=== PATIENT | male | born 1950 | race Native Hawaiian/Other Pacific Islander ===

== ENCOUNTER 2016-12-17 07:58 | Outpatient (CLI) | payer OTHER ==
[~2016-12-17] VITALS: Ht 167.6 cm; Wt 49.9 kg
== END 2016-12-17 20:13 | disposition home or self-care (01) ==
LOC: NM 07:58
DX: R07.89 Other chest pain (principal)
CPT/HCPCS: A9500; J2785

== ENCOUNTER 2018-03-26 17:54 | Outpatient (CLI) | payer OTHER | END 2018-03-26 18:25 | disposition short-term general hospital (02) | LOC: AMB 17:54 | DX: I21.09 ST elevation (STEMI) myocardial infarction involving other coronary artery of anterior wall (principal) | CPT/HCPCS: A0425; A0427 ==

== ENCOUNTER 2018-05-21 16:04 | Outpatient (CLI) | payer OTHER ==
[2018-05-21 16:17] LABS: PLATELET COUNT 192 K/uL (142-355)
== END 2018-05-21 21:26 | disposition home or self-care (01) ==
LOC: LABW 16:04
PROVIDERS: Specialist
DX: Z01.810 Encounter for preprocedural cardiovascular examination (principal); I73.89 Other specified peripheral vascular diseases
CPT/HCPCS: 36415; 80053; 85027

== ENCOUNTER 2018-06-08 10:00 | Outpatient (CLI) | payer OTHER ==
[2018-06-08 10:21] LABS: PLATELET COUNT 345 K/uL (142-355)
== END 2018-06-08 22:00 | disposition home or self-care (01) ==
LOC: LABW 10:00
PROVIDERS: Nurse Practitioner Adult Health
DX: I25.10 Atherosclerotic heart disease of native coronary artery without angina pectoris (principal); E78.2 Mixed hyperlipidemia; Z79.899 Other long term (current) drug therapy; Z51.81 Encounter for therapeutic drug level monitoring
CPT/HCPCS: 36415; 80061; 80076; 85027

== ENCOUNTER 2018-08-17 20:41 | Emergency (ER) | payer OTHER ==
[~2018-08-17] VITALS: Ht 167.6 cm; Wt 56.2 kg
[2018-08-17 21:25] LABS: POTASSIUM 4.9 mmol/L (3.6-5.2)
[2018-08-17 22:02] LABS: PLATELET COUNT 178 K/uL (142-355)
[2018-08-18 03:09] VITALS: BP 119/57; TEMP 102.9
== END 2018-08-18 03:13 | disposition short-term general hospital (02) ==
LOC: ED 20:41
DX: K40.90 Unilateral inguinal hernia, without obstruction or gangrene, not specified as recurrent (principal); R00.0 Tachycardia, unspecified
CPT/HCPCS: 36415; 80053; 83605; 85027; 93005; 96361; 96365; 99284; J0132; J2175; J2405; J7120; Q9963

== ENCOUNTER 2018-08-18 03:08 | Outpatient (CLI) | payer OTHER | END 2018-08-18 03:38 | LOC: AMB 03:08 | DX: K40.90 Unilateral inguinal hernia, without obstruction or gangrene, not specified as recurrent (principal); R00.0 Tachycardia, unspecified | CPT/HCPCS: A0425; A0427 ==

== ENCOUNTER 2018-11-18 09:43 | Outpatient (CLI) | payer OTHER | END 2018-11-18 22:09 | disposition home or self-care (01) | LOC: LABW 09:43 | PROVIDERS: Internal Medicine Cardiovascular Disease | DX: E78.5 Hyperlipidemia, unspecified (principal); I25.119 Atherosclerotic heart disease of native coronary artery with unspecified angina pectoris; Z09 Encounter for follow-up examination after completed treatment for conditions other than malignant neoplasm | CPT/HCPCS: 36415; 80061; 80076 ==

== ENCOUNTER 2019-08-30 10:05 | Outpatient (CLI) | payer OTHER ==
[2019-08-30 10:22] LABS: PLATELET COUNT 285 K/uL (142-355)
[2019-08-30 10:34] LABS: POTASSIUM 4.8 mmol/L (3.6-5.2)
== END 2019-08-30 19:57 | disposition home or self-care (01) ==
LOC: LABW 10:05
PROVIDERS: Surgery Vascular Surgery
DX: Z01.810 Encounter for preprocedural cardiovascular examination (principal); Z01.811 Encounter for preprocedural respiratory examination; Z01.812 Encounter for preprocedural laboratory examination; I70.221 Atherosclerosis of native arteries of extremities with rest pain, right leg
CPT/HCPCS: 36415; 80048; 85027; 93005

== ENCOUNTER 2019-09-21 11:22 | Outpatient (CLI) | payer OTHER | END 2019-09-21 19:34 | disposition home or self-care (01) | LOC: LABW 11:22 | PROVIDERS: Internal Medicine Cardiovascular Disease | DX: E78.49 Other hyperlipidemia (principal); I25.119 Atherosclerotic heart disease of native coronary artery with unspecified angina pectoris; Z09 Encounter for follow-up examination after completed treatment for conditions other than malignant neoplasm | CPT/HCPCS: 36415; 80061; 80076 ==

== ENCOUNTER 2019-10-18 10:31 | Outpatient (CLI) | payer OTHER | END 2019-10-18 19:09 | disposition home or self-care (01) | LOC: LABW 10:31 → MRI 10:31 | PROVIDERS: Orthopaedic Surgery Orthopaedic Surgery of the Spine | DX: M54.16 Radiculopathy, lumbar region (principal); M54.5 Low back pain; E78.49 Other hyperlipidemia | CPT/HCPCS: 36415; 80061; 80076 ==

== ENCOUNTER 2020-04-24 11:22 | Outpatient (CLI) | payer OTHER | END 2020-04-24 22:05 | disposition home or self-care (01) | LOC: RAD 11:22 | DX: R05 Cough (principal); R10.9 Unspecified abdominal pain; K59.09 Other constipation ==

== ENCOUNTER 2020-04-25 08:23 | Outpatient (CLI) | payer OTHER | END 2020-04-25 20:04 | disposition home or self-care (01) | LOC: LABW 08:23 | PROVIDERS: Nurse Practitioner Family | DX: R05 Cough (principal); R10.9 Unspecified abdominal pain; E78.49 Other hyperlipidemia | CPT/HCPCS: 36415; 80061; 80076; 82565; 84520 ==

== ENCOUNTER 2020-04-25 08:34 | Outpatient (CLI) | payer OTHER | END 2020-04-25 20:04 | disposition home or self-care (01) | LOC: LAB 08:34 | DX: R05 Cough (principal) | CPT/HCPCS: 87635; G2023; Q9963; U0002 ==

== ENCOUNTER 2020-07-10 12:09 | Emergency (ER) | payer OTHER ==
[~2020-07-10] VITALS: Ht 167.6 cm; Wt 56.2 kg
[2020-07-10] MEDS ORDERED: DEPO-TESTOS200 MG/M1 IM (12:17)
[2020-07-10] MEDS ORDERED: BUDE1AER5 INH (12:17)
[2020-07-10] MEDS ORDERED: METO25TA2 PO (12:18)
[2020-07-10] MEDS ORDERED: CLOP75TA2 PO (12:18)
[2020-07-10] MEDS ORDERED: ASPIRIN 81 LOW81 MG PO (12:18)
[2020-07-10] MEDS ORDERED: ACID REDUCER150 MG PO (12:19)
[2020-07-10] MEDS ORDERED: PRAVACHOL20 MG PO (12:19)
[2020-07-10] MEDS ORDERED: PRINIVIL5 MG PO (12:20)
[2020-07-10] MEDS ORDERED: HYDROXYZINE HYD50 MG PO (12:23)
[2020-07-10] MEDS ORDERED: CENTRUM SILVER PO (12:24)
[2020-07-10] MEDS ORDERED: [UNRECOGNIZED DRUG - CODE] PO (12:25)
[2020-07-10] MEDS ORDERED: CODEINE/APAP1 TA1 PO (12:27)
[2020-07-10 13:00] LABS: PLATELET COUNT 155 K/uL (142-355)
[2020-07-10 13:13] LABS: POTASSIUM 5.3 mmol/L (3.6-5.2); SODIUM 136 mmol/L (136-145)
[2020-07-10 14:30] VITALS: TEMP 98.2
[2020-07-10 16:00] VITALS: BP 132/60
== END 2020-07-10 16:00 | disposition home or self-care (01) ==
LOC: ED 12:09
PROVIDERS: Family Medicine
DX: E86.0 Dehydration (principal)
CPT/HCPCS: 80053; 82550; 82553; 83605; 84484; 85027; 93005; 96360; 99284

== ENCOUNTER 2020-08-11 08:30 | Outpatient (CLI) | payer OTHER ==
[~2020-08-11 08:30] MED LIST: ACID REDUCER150 MG PO; ASPIRIN 81 LOW81 MG PO; BUDE1AER5 INH; CENTRUM SILVER PO; CLOP75TA2 PO; CODEINE/APAP1 TA1 PO; DEPO-TESTOS200 MG/M1 IM; HYDROXYZINE HYD50 MG PO; METO25TA2 PO; PRAVACHOL20 MG PO; PRINIVIL5 MG PO; [UNRECOGNIZED DRUG - CODE] PO
== END 2020-08-12 03:33 | disposition home or self-care (01) ==
LOC: NM 08:30
DX: R11.0 Nausea (principal)
CPT/HCPCS: A9541

== ENCOUNTER 2020-10-09 10:00 | Outpatient (CLI) | payer OTHER | END 2020-10-09 22:08 | disposition home or self-care (01) | LOC: LABW 10:00 | PROVIDERS: ATTEND Internal Medicine Cardiovascular Disease | DX: E78.49 Other hyperlipidemia (principal); I25.119 Atherosclerotic heart disease of native coronary artery with unspecified angina pectoris; Z09 Encounter for follow-up examination after completed treatment for conditions other than malignant neoplasm | CPT/HCPCS: 36415; 80061; 80076 ==

== ENCOUNTER 2021-10-11 07:45 | Outpatient (CLI) | payer OTHER | END 2021-10-11 18:55 | disposition home or self-care (01) | LOC: LABW 07:45 | PROVIDERS: ATTEND Internal Medicine Cardiovascular Disease | DX: E78.49 Other hyperlipidemia (principal) | CPT/HCPCS: 36415; 80061; 80076 ==

== ENCOUNTER 2021-12-22 15:17 | Observation (INO) | payer OTHER ==
[~2021-12-22] VITALS: Ht 165.1 cm; Wt 50.4 kg
[~2021-12-22 15:17] MED LIST changes: -PRAVACHOL20 MG PO; +PRAVASTATIN PO
[2021-12-22 15:25] VITALS: BP 124/75; TEMP 97.6
[2021-12-22 16:01] LABS: PLATELET COUNT 225 K/uL (142-355)
[2021-12-22 16:13] LABS: POTASSIUM 5.6 mmol/L (3.6-5.2)
[2021-12-22 16:19] LABS: PARTIAL THROMBOPLASTIN TIME 27.5 SECONDS (24.5-33.6)
[2021-12-22 18:21] VITALS: BP 150/91; TEMP 98.3
[2021-12-22 19:00] VITALS: BP 134/61
[2021-12-22 19:12] VITALS: BP 163/85; TEMP 97.9; Ht 165.1 cm; Wt 50.4 kg
[2021-12-22 20:23] VITALS: BP 163/85; TEMP 97.9
[2021-12-22 23:53] VITALS: BP 129/68; TEMP 97.1
[2021-12-23 04:20] VITALS: BP 145/73; TEMP 97.5
[2021-12-23 05:39] LABS: PLATELET COUNT 190 K/uL (142-355)
[2021-12-23 05:46] LABS: POTASSIUM 4.7 mmol/L (3.6-5.2)
[2021-12-23 08:00] VITALS: BP 131/71; TEMP 97.7
[2021-12-23 12:00] VITALS: BP 152/70; TEMP 97.8
[2021-12-23] MEDS ORDERED: LISINOPRIL PO (14:09)
[2021-12-23] MEDS ORDERED: TRELEGY ELLIPTA1 AER INH (14:17)
[2021-12-23] MEDS ORDERED: PAROXETINE HYDR20 MG PO (14:18)
[2021-12-23] MEDS ORDERED: TAMSULOSIN HYD0.4 MG PO (14:19)
[2021-12-23] MEDS ORDERED: LEVOCETIRIZINE D5 MG PO (14:21)
[2021-12-23] MEDS ORDERED: MEGESTROL AC40 MG PO (14:24)
[2021-12-23] MEDS ORDERED: cilostazol PO (14:27)
[2021-12-23] MEDS ORDERED: METOCLOPRAM10 MG PO (14:29)
[2021-12-23] MEDS ORDERED: DOK100 MG PO (14:30)
[2021-12-23 16:00] VITALS: BP 130/73; TEMP 97.3
[2021-12-23 20:00] VITALS: BP 140/65; TEMP 97.4
[2021-12-23 23:53] VITALS: BP 147/63; TEMP 98.7
[2021-12-24 04:00] VITALS: BP 140/62; TEMP 98.3
[2021-12-24 08:00] VITALS: BP 146/54; TEMP 98.3
[2021-12-24 12:00] VITALS: BP 147/64; TEMP 98.3
[2021-12-24 16:00] VITALS: BP 153/72; TEMP 98.1
[2021-12-24 20:00] VITALS: BP 143/73; TEMP 98.2
[2021-12-25] VITALS: BP 150/68; TEMP 98.3
[2021-12-25 04:00] VITALS: BP 142/69; TEMP 98.6
[2021-12-25 08:00] VITALS: BP 151/73; TEMP 99.1
[2021-12-25 12:00] VITALS: BP 122/73; TEMP 97.6
== END 2021-12-25 13:30 | disposition home health service (06) ==
LOC: ED 15:17 → MED/SURG 18:17
PROVIDERS: Family Medicine; ADMIT Internal Medicine Endocrinology, Diabetes & Metabolism; ATTEND Internal Medicine Endocrinology, Diabetes & Metabolism
DX: G45.8 Other transient cerebral ischemic attacks and related syndromes (principal); J44.1 Chronic obstructive pulmonary disease with (acute) exacerbation; I25.110 Atherosclerotic heart disease of native coronary artery with unstable angina pectoris; I10 Essential (primary) hypertension; E78.49 Other hyperlipidemia; Z72.0 Tobacco use; R06.02 Shortness of breath
CPT/HCPCS: 80048; 80053; 82550; 84484; 85027; 85610; 85730; 87635; 93005; 94640; 94664; 94760; 96360; 96361; 96365; 96372; 99220; 99283; G0378; J1650; U0003

== ENCOUNTER 2022-02-19 12:58 | Observation (INO) | payer OTHER ==
[2022-02-19] VITALS (10 sets, daily range): BP systolic 108–199; BP diastolic 45–78; TEMP 97.4–98.7; Ht 165.1 cm; Wt 52.3 kg
[~2022-02-19] VITALS: Ht 165.1 cm; Wt 52.3 kg
[~2022-02-19 12:58] MED LIST changes: +DOK100 MG PO; +LEVOCETIRIZINE D5 MG PO; +LISINOPRIL PO; +MEGESTROL AC40 MG PO; +METOCLOPRAM10 MG PO; +PAROXETINE HYDR20 MG PO; +TAMSULOSIN HYD0.4 MG PO; +TRELEGY ELLIPTA1 AER INH; +cilostazol PO
[2022-02-19 13:41] LABS: PLATELET COUNT 232 K/uL (142-355)
[2022-02-19 13:43] LABS: POTASSIUM 4.8 mmol/L (3.6-5.2)
[2022-02-20] VITALS (7 sets, daily range): BP systolic 117–184; BP diastolic 52–99; TEMP 97.6–99
[2022-02-20 04:12] LABS: PLATELET COUNT 186 K/uL (142-355)
[2022-02-20 04:25] LABS: POTASSIUM 4.6 mmol/L (3.6-5.2)
[2022-02-20] MEDS ORDERED: ACID CONTROL20 MG PO (09:10)
[2022-02-20] MEDS ORDERED: FEXOFENADINE H180 M1 PO (09:11)
[2022-02-21 04:07] VITALS: BP 117/49; TEMP 98.4
[2022-02-21 08:00] VITALS: BP 123/65; TEMP 98.1
[2022-02-21 08:30] LABS: PLATELET COUNT 193 K/uL (142-355)
[2022-02-21 08:36] LABS: POTASSIUM 5.1 mmol/L (3.6-5.2)
[2022-02-21 12:00] VITALS: BP 130/69; TEMP 98.4
[2022-02-21] MEDS ORDERED: PANTOPRAZOLE 40MG TA PO (12:43)
== END 2022-02-21 15:38 | disposition home or self-care (01) ==
LOC: ED 12:58 → MED/SURG 16:45
PROVIDERS: Emergency Medicine; Internal Medicine Endocrinology, Diabetes & Metabolism; ADMIT Internal Medicine; ATTEND Internal Medicine
DX: J44.1 Chronic obstructive pulmonary disease with (acute) exacerbation (principal); I25.10 Atherosclerotic heart disease of native coronary artery without angina pectoris; D63.8 Anemia in other chronic diseases classified elsewhere; I10 Essential (primary) hypertension; R00.0 Tachycardia, unspecified; E78.49 Other hyperlipidemia; Z72.0 Tobacco use; Z86.73 Personal history of transient ischemic attack (TIA), and cerebral infarction without residual deficits
CPT/HCPCS: 36415; 36600; 80048; 80053; 81000; 82805; 83880; 84484; 85027; 85610; 87635; 93005; 94640; 94664; 94760; 96361; 96365; 96366; 96367; 96372; 96374; 96375; 99220; 99284; G0378; J1650; J1956; J2920; J2930; J3490; Q9963; U0003

== ENCOUNTER 2022-02-25 17:21 | Emergency (ER) | payer OTHER ==
[~2022-02-25] VITALS: Ht 165.1 cm; Wt 52.2 kg
[~2022-02-25 17:21] MED LIST changes: +ACID CONTROL20 MG PO; +FEXOFENADINE H180 M1 PO; +PANTOPRAZOLE 40MG TA PO
[2022-02-25 21:05] VITALS: BP 131/62; TEMP 98.2
== END 2022-02-25 21:05 | disposition home or self-care (01) ==
LOC: ED 17:21
PROC: 2W38X1Z Immobilization of Right Upper Extremity using Splint (ICD-10-PCS; principal; 2022-02-25)
DX: S42.211A Unspecified displaced fracture of surgical neck of right humerus, initial encounter for closed fracture (principal); R51.9 Headache, unspecified; W18.39XA Other fall on same level, initial encounter; Y92.098 Other place in other non-institutional residence as the place of occurrence of the external cause
CPT/HCPCS: 99283

== ENCOUNTER 2022-03-04 13:48 | Outpatient (CLI) | payer OTHER | END 2022-03-04 21:23 | disposition home or self-care (01) | LOC: RAD 13:48 | PROVIDERS: ATTEND Orthopaedic Surgery | DX: M25.511 Pain in right shoulder (principal) ==

== ENCOUNTER 2022-03-07 15:04 | Outpatient (CLI) | payer OTHER | END 2022-03-07 22:11 | disposition home or self-care (01) | LOC: LAB 15:04 | PROVIDERS: ATTEND Internal Medicine Gastroenterology | DX: K64.0 First degree hemorrhoids (principal) | CPT/HCPCS: 82272 ==

== ENCOUNTER 2022-03-18 13:57 | Outpatient (CLI) | payer OTHER | END 2022-03-18 19:03 | disposition home or self-care (01) | LOC: RAD 13:57 | PROVIDERS: ATTEND Physician Assistant | DX: M25.511 Pain in right shoulder (principal) ==

== ENCOUNTER 2022-04-16 14:45 | Outpatient (CLI) | payer OTHER | END 2022-04-16 18:54 | disposition home or self-care (01) | LOC: RAD 14:45 | PROVIDERS: ATTEND Orthopaedic Surgery | DX: M25.511 Pain in right shoulder (principal) ==

== ENCOUNTER 2022-05-17 11:38 | Outpatient (CLI) | payer OTHER | END 2022-05-17 20:00 | disposition home or self-care (01) | LOC: LABW 11:38 | PROVIDERS: ATTEND Internal Medicine Cardiovascular Disease | DX: E78.49 Other hyperlipidemia (principal) | CPT/HCPCS: 36415; 80061; 80076 ==

== ENCOUNTER 2022-06-13 22:06 | Inpatient (IN) | payer OTHER ==
[~2022-06-13] VITALS: Ht 165.1 cm; Wt 48.8 kg
[2022-06-13 22:18] VITALS: BP 113/59; TEMP 97.6
[2022-06-13 22:23] LABS: PLATELET COUNT 201 K/uL (142-355)
[2022-06-13 22:42] LABS: POTASSIUM 5.1 mmol/L (3.6-5.2)
[2022-06-14 02:05] VITALS: BP 145/76; TEMP 99; Ht 165.1 cm; Wt 48.8 kg
[2022-06-14 04:00] VITALS: BP 146/74; TEMP 97.6
[2022-06-14] MEDS ORDERED: CLARITIN10 M1 PO (05:48)
[2022-06-14] MEDS ORDERED: BAC 50-325-40 M1 TAB PO (05:49)
[2022-06-14 06:46] LABS: PLATELET COUNT 180 K/uL (142-355)
[2022-06-14 08:30] VITALS: BP 129/70; TEMP 98.8
[2022-06-14 12:00] VITALS: BP 138/76; TEMP 98.3
[2022-06-14 16:00] VITALS: BP 138/76; TEMP 98.3
[2022-06-14 20:00] VITALS: BP 116/59; TEMP 99.8
[2022-06-15] VITALS: BP 118/62; TEMP 100.7
[2022-06-15 04:00] VITALS: BP 137/75; TEMP 97.4
[2022-06-15 08:00] VITALS: BP 138/74; TEMP 98.1
[2022-06-15 12:00] VITALS: BP 129/69; TEMP 97.8
[2022-06-15 16:09] VITALS: BP 132/73; TEMP 97.6
[2022-06-16] VITALS: BP 108/60; TEMP 98.3
[2022-06-16 04:00] VITALS: BP 115/68; TEMP 97.9
[2022-06-16 08:00] VITALS: BP 156/78; TEMP 97.8
[2022-06-16 12:00] VITALS: BP 149/68; TEMP 98.1
[2022-06-16 16:00] VITALS: BP 139/73; TEMP 98.2
[2022-06-16 20:00] VITALS: BP 107/75; TEMP 98.7
[2022-06-17] VITALS: BP 126/83; TEMP 97.8
[2022-06-17 04:00] VITALS: BP 142/65; TEMP 98.7
[2022-06-17 05:31] LABS: PLATELET COUNT 186 K/uL (142-355)
[2022-06-17 05:44] LABS: POTASSIUM 4.2 mmol/L (3.6-5.2)
[2022-06-17 08:00] VITALS: BP 130/70; TEMP 97.9
[2022-06-17] MEDS ORDERED: AZIT250T3 PO (08:09)
[2022-06-17] MEDS ORDERED: CEFD300C2 PO (08:10)
[2022-06-17] MEDS ORDERED: PRED20TA27 PO (09:12)
== END 2022-06-17 10:10 | disposition home health service (06) | DRG 190 ==
LOC: ED 22:06 → MED/SURG 06-14 00:10
PROVIDERS: ADMIT Emergency Medicine; ATTEND Internal Medicine
DX: J44.1 Chronic obstructive pulmonary disease with (acute) exacerbation (principal); J18.8 Other pneumonia, unspecified organism; J96.21 Acute and chronic respiratory failure with hypoxia; E43 Unspecified severe protein-calorie malnutrition; S42.211A Unspecified displaced fracture of surgical neck of right humerus, initial encounter for closed fracture; Z68.1 Body mass index [BMI] 19.9 or less, adult; J44.0 Chronic obstructive pulmonary disease with (acute) lower respiratory infection; I25.10 Atherosclerotic heart disease of native coronary artery without angina pectoris; I10 Essential (primary) hypertension; E78.49 Other hyperlipidemia; R54 Age-related physical debility; R00.0 Tachycardia, unspecified; I49.3 Ventricular premature depolarization; W18.39XA Other fall on same level, initial encounter; Y92.89 Other specified places as the place of occurrence of the external cause
CPT/HCPCS: 36415; 36600; 43754; 80048; 80053; 82805; 83605; 83880; 84484; 85027; 85610; 85730; 87040; 87635; 93005; 94664; 94760; 96365; 99284; J0456; J0690; J0696; J7120; Q9963; U0003

== ENCOUNTER 2022-06-28 10:39 | Outpatient (CLI) | payer OTHER ==
[~2022-06-28 10:39] MED LIST changes: +AZIT250T3 PO; +BAC 50-325-40 M1 TAB PO; +CEFD300C2 PO; +CLARITIN10 M1 PO; +PRED20TA27 PO
[2022-06-28 11:42] LABS: PLATELET COUNT 330 K/uL (142-355)
== END 2022-06-28 19:08 | disposition home or self-care (01) ==
LOC: LAB 10:39
PROVIDERS: ATTEND Physician Assistant
DX: D64.9 Anemia, unspecified (principal)
CPT/HCPCS: 83540; 83550; 85027